=== PATIENT | female | born 1940 | race Caucasian/White ===

== ENCOUNTER → 2016-11-02 | Outpatient (CLI) | payer OTHER ==
[~2016-11-02] MED LIST: ADALATCC; AVALIDE 150-12.1 TAB; AVALIDE 300-12.1 TAB; CLONIDINE; LANTUS100 U/ML; NOVOLOG100 U/ML; ZANTAC
[2016-11-02 08:32] LABS: ALBUMIN SERUM 3.7 g/dL (3.5-5.0); BILIRUBIN,TOTAL 0.9 mg/dL (0.2-2.0); BUN/CREATININE RATIO 24.28; CALCIUM SERUM 9.1 mg/dL (8.4-10.2); CREATININE SERUM 0.7 mg/dL (0.6-1.4); GLOM FILT RATE Estimated 84.2 mL/min (>60); POTASSIUM 3.7 mmol/L (3.5-5.1); PROTEIN TOTAL SERUM 7.3 g/dL (6.0-8.3)
[2016-11-07 08:08] LABS: MICROALB UR (PNL) 2.7 mg/dL (***)
== END | disposition home or self-care (01) ==
LOC: CLAB 07:11
PROVIDERS: Internal Medicine Endocrinology, Diabetes & Metabolism
DX: E10.49 Type 1 diabetes mellitus with other diabetic neurological complication (principal); E78.5 Hyperlipidemia, unspecified; I10 Essential (primary) hypertension
CPT/HCPCS: 36415; 80053; 80061; 82043; 82570; 83036; 84443